=== PATIENT | female | born 1975 | race Caucasian/White ===

== ENCOUNTER 2017-10-22 16:18 | Inpatient (IN) | payer BC ==
[~2017-10-22] VITALS: Ht 167.6 cm; Wt 120.0 kg
[~2017-10-22 16:18] MED LIST: DEXAMETHASONE SOD PHOS 4 MG/ML VIAL IV ONE; LIDOCAINE HCL 1% PF 5 ML SYRINGE OTHER ONE; ONDANSETRON HCL 4 MG/2 ML VIAL IV ONE; PROPOFOL 200 MG/20 ML AMP IV ONE; ROCURONIUM INJ 50 MG/5 ML SYRINGE IV PUSH ONE; SUCCINYLCHOLINE CHLORIDE 100 MG/5 ML SYRINGE IV PUSH ONE; ceFAZolin INJ 1,000 MG VIAL IV ONE
[2017-10-22 16:29] VITALS: BP 131/61; PULSE 94; RESP 16; TEMP 98.6; O2SAT 99
--- NOTE | 2017-10-22 17:59 | PD ---
HPI Chief Complaint: Laceration/Skin Injury Time Seen by Provider: 17:44 Travel History International Travel<30 days: No Contact w/Intl Traveler<30days: No Traveled to known affect area: No History of Present Illness HPI Patient comes emergency department for evaluation of a laceration to the vaginal area occurred shortly prior to arrival. Patient states that she went to get the pulling her foot slipped causing her to land somehow in the pool causing laceration. Patient denies being on any blood thinners. Denies any head injury or loss consciousness. Patient complaining of pain around site without radiation. Pain is worse with walking. Patient reports applied pressure as well as using vascular bleeding under control which she thought she had to she went to the bathroom. [facility] Past Medical History Medical History: Denies Significant Hx ?: Not Past Surgical History Surgical History: No Previous Surgery Social History Alcohol Use: No Tobacco Use: No Substance Use: No Allergies-Medications (Allergen,Severity, Reaction): Coded Allergies: No Known Allergies (Unverified , 10/22/17) Review of Systems Except as stated in HPI: all other systems reviewed are Neg Physical Exam Narrative GENERAL: Well-developed, overly nourished, in no acute distress, and non-ill appearing. SKIN: Laceration noted over the left outer labial runs into the perineum. No foreign body noted. Contusion noted over the right gluteal fold. HEAD: Atraumatic. Normocephalic. EYES: Pupils equal and round. EOMI. No scleral icterus. No injection or drainage. ENT: No nasal bleeding or discharge. Mucous membranes pink and moist. NECK: Trachea midline. Supple. No nuclear rigidity. RESPIRATORY: No accessory muscle use. No respiratory distress. MUSCULOSKELETAL: No obvious deformities. No clubbing. No cyanosis. No edema. Full range of motion. NEUROLOGICAL: Awake and alert. No obvious cranial nerve deficits. Motor grossly within normal limits. Normal speech. PSYCHIATRIC: Appropriate mood and affect; insight and judgment normal. Data Data Last Documented VS Vital Signs Date Time Temp Pulse Resp B/P (MAP) Pulse Ox O2 Delivery O2 Flow Rate FiO2 10/22/17 16:29 98.6 94 16 131/61 (84) 99 Orders Orders Basic Metabolic Panel (Bmp) (10/22/17 17:54) Complete Blood Count With Diff (10/22/17 17:54) Prothrombin Time / Inr (Pt) (10/22/17 17:54) Act Partial Throm Time (Ptt) (10/22/17 17:54) Iv Access Insert/Monitor (10/22/17 17:54) Ecg Monitoring (10/22/17 17:54) Oximetry (10/22/17 17:54) Morphine Inj (Morphine Inj) (10/22/17 18:00) Ondansetron Odt (Zofran Odt) (10/22/17 18:00) MDM Medical Decision Making Medical Screen Exam Complete: Yes Emergency Medical Condition: Yes Physician Communication Physician Communication [id number] discussed patient with OB hospitalist Dr. Henderson, who states she will come and evaluate the patient. Rupesh Nielsen Oct 22, 2017 17:59
[2017-10-22] MEDS ORDERED: ONDANSETRON ODT 4 MG TAB PO ONE (18:00)
[2017-10-22] MEDS ORDERED: MORPHINE SULFATE 4 MG/ML INJ IV PUSH ONE (18:00)
--- NOTE | 2017-10-22 18:02 | PD ---
Physical Exam Narrative I, Dr. De Jesus, have reviewed the advance practice practitioner's documentation and am in agreement, met with the patient face to face, made the diagnosis, and the medical decision making was done by me. *My assessment and Findings: Patient is a 62 year old female who comes in after she slipped and fell at the pool, cutting her vaginal area. Exam shows a large laceration of the labia with active bleeding. Data Data Last Documented VS Vital Signs Date Time Temp Pulse Resp B/P (MAP) Pulse Ox O2 Delivery O2 Flow Rate FiO2 10/22/17 19:08 90 16 124/62 (82) 99 Room Air 10/22/17 16:29 98.6 Orders Orders Basic Metabolic Panel (Bmp) (10/22/17 17:54) Complete Blood Count With Diff (10/22/17 17:54) Prothrombin Time / Inr (Pt) (10/22/17 17:54) Act Partial Throm Time (Ptt) (10/22/17 17:54) Iv Access Insert/Monitor (10/22/17 17:54) Ecg Monitoring (10/22/17 17:54) Oximetry (10/22/17 17:54) Morphine Inj (Morphine Inj) (10/22/17 18:00) Ondansetron Odt (Zofran Odt) (10/22/17 18:00) Type And Screen (10/22/17 18:47) Beta Hcg (Quant/Titer) (10/22/17 18:00) Admit Order (Ed Use Only) (10/22/17 ) Labs Laboratory Tests Test 10/22/17 18:00 White Blood Count 14.8 TH/MM3 Red Blood Count 4.20 MIL/MM3 Hemoglobin 13.0 GM/DL Hematocrit 38.2 % Mean Corpuscular Volume 91.0 FL Mean Corpuscular Hemoglobin 30.8 PG Mean Corpuscular Hemoglobin Concent 33.9 % Red Cell Distribution Width 12.6 % Platelet Count 291 TH/MM3 Mean Platelet Volume 8.8 FL Neutrophils (%) (Auto) 87.2 % Lymphocytes (%) (Auto) 8.8 % Monocytes (%) (Auto) 3.5 % Eosinophils (%) (Auto) 0.1 % Basophils (%) (Auto) 0.4 % Neutrophils # (Auto) 12.9 TH/MM3 Lymphocytes # (Auto) 1.3 TH/MM3 Monocytes # (Auto) 0.5 TH/MM3 Eosinophils # (Auto) 0.0 TH/MM3 Basophils # (Auto) 0.1 TH/MM3 CBC Comment DIFF FINAL Differential Comment Prothrombin Time 9.8 SEC Prothromb Time International Ratio 1.0 RATIO Activated Partial Thromboplast Time 20.6 SEC Blood Urea Nitrogen 14 MG/DL Creatinine 0.83 MG/DL Random Glucose 96 MG/DL Calcium Level 8.6 MG/DL Sodium Level 139 MEQ/L Potassium Level 3.9 MEQ/L Chloride Level 107 MEQ/L Carbon Dioxide Level 24.5 MEQ/L Anion Gap 8 MEQ/L Estimat Glomerular Filtration Rate 69 ML/MIN Human Chorionic Gonadotropin, Quant LESS THAN 1 MIU/ML MDM Supervised Visit with REHANA: Yes Narrative Course Dr. Henderson, the OB hospitalist was called. She will come and see the patient. On her arrival, she is decided the patient will be better served to go to the OR for repair. She is admitted to same-day surgery for further management. Diagnosis Primary Impression: Vaginal laceration Qualified Codes: S31.41XA - Laceration without foreign body of vagina and vulva, initial encounter Admitting Information Admitting Physician Requests: Observation Scripts No Active Prescriptions or Reported Meds Opal De Jesus MD Oct 22, 2017 18:02
[2017-10-22 18:24] LABS: AUTOMATED NEUTROPHIL # 12.9 TH/MM3 (1.8-7.7); BASOPHIL # 0.1 TH/MM3 (0-0.2); BASOPHIL % 0.4 % (0.0-2.0); EOSINOPHIL % 0.1 % (0.0-4.0); HEMATOCRIT 38.2 % (35.0-46.0); LYMPH % 8.8 % (9.0-44.0); LYMPHOCYTE # 1.3 TH/MM3 (1.0-4.8); MEAN CORPUSCULAR HEMOGLOBIN 30.8 PG (27.0-34.0); MEAN CORPUSCULAR HGB CONC 33.9 % (32.0-36.0); MEAN PLATELET VOLUME 8.8 FL (7.0-11.0); MONO % 3.5 % (0.0-8.0); MONOCYTE # 0.5 TH/MM3 (0-0.9); NEUT % 87.2 % (16.0-70.0); PLATELET COUNT 291 TH/MM3 (150-450); RED CELL DISTRIBUTION WIDTH 12.6 % (11.6-17.2); WHITE BLOOD COUNT 14.8 TH/MM3 (4.0-11.0)
[2017-10-22 18:38] LABS: PROTHROMBIN TIME - PATIENT 9.8 SEC (9.8-11.6)
[2017-10-22 18:41] LABS: BICARBONATE 24.5 MEQ/L (21.0-32.0); BLOOD UREA NITROGEN 14 MG/DL (7-18); CALCIUM 8.6 MG/DL (8.5-10.1); CHLORIDE 107 MEQ/L (98-107); CREATININE 0.83 MG/DL (0.50-1.00); GLOMERULAR FILTRATION RATE 69 ML/MIN (>89); GLUCOSE,RANDOM 96 MG/DL (74-106); SODIUM (NA) 139 MEQ/L (136-145)
[2017-10-22 19:08] VITALS: BP 124/62; PULSE 90; RESP 16; O2SAT 99
--- NOTE | 2017-10-22 19:17 | PD.CONS ---
HPI Chief Complaint s/p fall, perineal trauma Travel History International Travel<30 Days: No Contact w/Intl Traveler<30Days: No Known Affected Area: No History of Present Illness HPI 42 year-old P1001 visiting from [place] who fell getting into the pool at about 2pm. She reports she was stepping onto the ledge of the pool, with one foot still on the side of the pool and the other on the ledge when she slipped and fell into the pool. She isn't sure how she fell and denies hitting any sharp object that she is aware of. She felt immediate and sharp pain in her perineum. She reports that she got out of the pool and noticed heavy bleeding. She felt lightheaded when she got up to walk to her room, so she sat down and rested, but then was able to ambulate [place]. She reports she continues to have bleeding from the perineum. She reports the laceration is very painful and bleeds heavy when she is up walking but the bleeding is less when she's resting in bed. Weeks Gestation: 1 Para: 1 Last Menstrual Period: October 06, 2017 Miscarriage: 0 : 0 History Past Medical History Narrative Medical Obesity Obstetric History Obstetric History P1001 Full term delivery x1 Menarche at age 14-15 Menses continue monthly, but are light and last about 1-2 days She denies any history of abnormal PAPs or STDs Her last PAP was about 2 years ago and was negative Past Surgical History Narrative Surgical delivery Family History Narrative Family History DM HTN Social History Alcohol Use: Yes (Rare social EtOH, had one drink today on vacation) Tobacco Use: No Substance Abuse: No Allergies-Medications (Allergen,Severity, Reaction): Coded Allergies: No Known Allergies (Unverified , 10/22/17) Home Meds No Active Prescriptions or Reported Meds Review of Systems Except as stated in HPI: all other systems reviewed are Neg Genitourinary: Other (See HPI, positive for perineal pain, bleeding) Physical Exam Vital Signs Date Time Temp Pulse Resp B/P (MAP) Pulse Ox O2 Delivery O2 Flow Rate FiO2 10/22/17 16:29 98.6 94 16 131/61 (84) 99 Narrative GENERAL: Well-nourished, well-developed patient. SKIN: Warm and dry. HEAD: Normocephalic and atraumatic. EYES: No scleral icterus. No injection or drainage. ENT: No nasal drainage noted. Mucous membranes pink. Airway patent. NECK: Supple, trachea midline. No JVD. CARDIOVASCULAR: Regular rate and rhythm without murmurs, gallops, or rubs. RESPIRATORY: Breath sounds equal bilaterally. No accessory muscle use. BREASTS: Deferred ABDOMEN/GI: Abdomen soft, non-tender, bowel sounds present, no rebound, no guarding, obese GENITOURINARY: External Genitalia: Right labia appears normal, Left labia has a laceration that starts on the inferior portion of the left labia and extends to the right buttock cheek, approximately 5-6 cm. The laceration was probed and appears to extend laterally to the right approximately 3 cm and either has an adherent clot or flap of tissue noted internally. The examination was limited by patient tolerance and habitus, but appears to extend close if not to the anus. A very gently rectal examination was performed and sphincter appears to be intact but still difficult to fully access the full extension of the laceration. There is an associated approximately 5-6 cm x 3 cm bruise on the right perineum/butt cheek. A gentle speculum examination revealed a grossly normal appearing vagina with physiological discharge and grossly normal rugae. There were no cervical or vagina masses noted and no vaginal lacerations visible on examination. A gentle BME confirmed. Some bleeding is noted during examination when closely examining laceration, but decreased when tissues are collapsed in their correct anatomical position. EXTREMITIES: No cyanosis or edema. BACK: Nontender without obvious deformity. NEUROLOGICAL: Awake and alert. Motor and sensory grossly within normal limits. Normal speech MUSCULOSKELETAL: Grossly normal muscle strength in all muscle groups. Grossly normal ROM. Gait not assessed as patient lying in bed. PSYCHIATRIC: grossly normal memory and affect Data Data Orders Orders Basic Metabolic Panel (Bmp) (10/22/17 17:54) Complete Blood Count With Diff (10/22/17 17:54) Prothrombin Time / Inr (Pt) (10/22/17 17:54) Act Partial Throm Time (Ptt) (10/22/17 17:54) Iv Access Insert/Monitor (10/22/17 17:54) Ecg Monitoring (10/22/17 17:54) Oximetry (10/22/17 17:54) Morphine Inj (Morphine Inj) (10/22/17 18:00) Ondansetron Odt (Zofran Odt) (10/22/17 18:00) Beta Hcg (Quant/Titer) (10/22/17 18:47) Type And Screen (10/22/17 18:47) Labs Laboratory Tests Test 10/22/17 18:00 White Blood Count 14.8 Red Blood Count 4.20 Hemoglobin 13.0 Hematocrit 38.2 Mean Corpuscular Volume 91.0 Mean Corpuscular Hemoglobin 30.8 Mean Corpuscular Hemoglobin Concent 33.9 Red Cell Distribution Width 12.6 Platelet Count 291 Mean Platelet Volume 8.8 Neutrophils (%) (Auto) 87.2 Lymphocytes (%) (Auto) 8.8 Monocytes (%) (Auto) 3.5 Eosinophils (%) (Auto) 0.1 Basophils (%) (Auto) 0.4 Neutrophils # (Auto) 12.9 Lymphocytes # (Auto) 1.3 Monocytes # (Auto) 0.5 Eosinophils # (Auto) 0.0 Basophils # (Auto) 0.1 CBC Comment DIFF FINAL Differential Comment Prothrombin Time 9.8 Prothromb Time International Ratio 1.0 Activated Partial Thromboplast Time 20.6 Blood Urea Nitrogen 14 Creatinine 0.83 Random Glucose 96 Calcium Level 8.6 Sodium Level 139 Potassium Level 3.9 Chloride Level 107 Carbon Dioxide Level 24.5 Anion Gap 8 Estimat Glomerular Filtration Rate 69 MDM Plan Assessment/Plan: 1. Traumatic nonobstetrical laceration: examination limited by patient habitus , patient comfort, and available facilities. Discussed with patient the need for further examination and evaluation of the traumatic, nonobstetrical laceration with examination under anesthesia and repair in the operating room. Patient was consented for procedure with risks, benefits, and alternatives discussed including but not limited to pain, infection, bleeding, injury to other/surrounding organs including but not limited to bladder/bowels/nerves/ vessels, need for additional procedures, need for blood transfusion, poor cosmetic outcome and healing, wound breakdown and the unlikely need for exploratory laparotomy or diagnostic laparoscopy. We discussed the additional possible risks of rectal/stool/flatal incontinence should there be injury that has occurred to the rectal sphincter. Hemoglobin stable. Discussed with Dr. Omer who will assume surgical care of the patient. 2. Obesity 3. B-Hcg pending Scripts No Active Prescriptions or Reported Scarlett Jose MD Oct 22, 2017 19:17
[2017-10-22] MEDS ORDERED: ACETAMINOPHEN 1000 MG/100 ML 100 ML IV ONE (23:44)
[2017-10-23] MEDS ORDERED: BACITRACIN TOP OINT 15 GM TUBE ONE (00:46)
[2017-10-23] MEDS ORDERED: DO NOT ADM ANY ANTICOAGULANT DRUGS PRN (01:00)
[2017-10-23] MEDS ORDERED: KETOROLAC TROMETHAMINE 30 MG/ML (IVP) VIAL IV PUSH ONE (01:45)
[2017-10-23] MEDS ORDERED: oxyCODONE/ACETAMINOPHEN 7.5 MG/325 MG TAB PO PRN (01:45)
[2017-10-23] MEDS ORDERED: PROMETHAZINE INJ 25 MG/ML VIAL IM PRN (01:45)
[2017-10-23 02:15] VITALS: BP 111/55; PULSE 86; RESP 16; O2SAT 100
--- NOTE | 2017-10-23 09:57 | PD.OP ---
cc: Scarlett Henderson MD Operative Report Date of Surgery: Oct 23, 2017 Preoperative Diagnosis: (1) Perineal laceration involving anal sphincter Postoperative Diagnosis: (1) Perineal laceration involving anal sphincter Procedure: Pelvic exam under anesthesia Repair of anal sphincter Repair of traumatic, non-obstetrical perineal laceration Anesthesia: GET Surgeon: Jina Omer Manager Outpatient(s): Madeline Stratton Surgeon: n/a Operation and Findings: Indications: This 42 y/o tourist from [place] sustained a perineal contusion and laceration falling at a swimming pool. She had to wait some hours for an available operating room. She sustained approximately 450 cc blood loss while waiting. She was evaluated in the ED by Dr. Scarlett Henderson, laborist, who also consented her for surgical repair. Findings: Pelvic exam under anesthesia revealed only small, superficial laceration deep to the introitus. However, the right groin had a contusion measuring approximately the size of my hand and centered over the ischium. The was no palpable evidence of hematoma of significant size, but ecchymosis was significant with soft tissue damage. The perineum was lacerated through the fourchette and to the left of the perineal body, extending to the urogenital triangle in depth towards the anus. The external anal sphincter was completely at about 11 o'clock and the internal anal sphincter partially torn. The laceration did not go deeper than the anal verge. Post-repair, rectal exam confirmed good sphincter approximation without involving the rectum. Procedure: After induction of general anesthesia the patient was positioned carefully in high stirrups, and prepped gently with Betadine after PEUA. Repair was started with the anal sphincter, with 3-0 Vicryl reinforcing sutures approximated the internal anal sphincter deep to the ruptured external sphincter. These were interrupted stitches. The sphincter was the reapproximated by locating the right potion which had retracted. 0-Vicryl sutures x3 were placed in figure of eight fashion, including the muscle capsule , thus drawing the trimmed ends of the muscle body together nicely. The perineal body was also recreated in the midline with a [id number] 0 Vicryl stitch, including the transversalis muscle. 3-0 Vicryl was used in interrupted fashion from the introitus to the anus, reapproximating the subcutaneous tissues , followed by another layer re-approximating the anal mucosa, perineum and introitus. Approximately 20 sutures were placed, interrupted because of the edema present and the high likelihood of traction on the repair with normal movement. Rectal exam confirmed good muscle tension at the shincter and no other lesion. The patient was awakened and taken to the PACU. She requests discharge from there when criteria met. EBL intraoperatively was about 15 cc. Jina Omer MD Oct 23, 2017 09:57
== END 2017-10-23 02:50 | disposition home or self-care (01) | DRG 988 ==
LOC: NEPD 16:18 → NEDA 19:19 → EDBD 19:19 → HPAC 22:55
PROVIDERS: ADMIT Obstetrics & Gynecology; ATTEND Obstetrics & Gynecology
PROC: 0DQR0ZZ Repair Anal Sphincter, Open Approach (ICD-10-PCS; principal; 2017-10-23)
DX: S31.41XA Laceration without foreign body of vagina and vulva, initial encounter (principal); Z68.41 Body mass index [BMI] 40.0-44.9, adult; S70.11XA Contusion of right thigh, initial encounter; E66.9 Obesity, unspecified; R60.9 Edema, unspecified; W16.012A Fall into swimming pool striking water surface causing other injury, initial encounter; Y92.34 Swimming pool (public) as the place of occurrence of the external cause
CPT/HCPCS: 80048; 84702; 85025; 85610; 85730; 86850; 86900; 86901; J0131; J0330; J0690; J1100; J2270; J2405; J3010